=== PATIENT | female | born 1975 | race African-American/Black ===

== ENCOUNTER 2017-04-21 12:34 | Emergency (ER) | payer OTHER ==
[2017-04-21 15:36] LABS: HCG URINE NEGATIVE (NEGATIVE)
== END 2017-04-21 15:59 | disposition home or self-care (01) ==
LOC: D.ER 12:34
PROVIDERS: Nurse Practitioner Family
DX: S69.92XA Unspecified injury of left wrist, hand and finger(s), initial encounter (principal); W23.0XXA Caught, crushed, jammed, or pinched between moving objects, initial encounter; M25.40 Effusion, unspecified joint; F17.200 Nicotine dependence, unspecified, uncomplicated

== ENCOUNTER 2017-06-02 09:41 | Emergency (ER) | payer SELFPAY | END 2017-06-02 10:44 | disposition home or self-care (01) | LOC: D.ER 09:41 | DX: R51 Headache (principal); F45.0 Somatization disorder; R06.02 Shortness of breath; M54.9 Dorsalgia, unspecified ==

== ENCOUNTER 2017-06-08 19:43 | Emergency (ER) | payer SELFPAY ==
[2017-06-08 22:06] LABS: INR 0.99 (0.85-1.17); PROTIME 12.9 SECONDS (11.6-15.0)
[2017-06-08 22:07] LABS: APTT 29.4 SECONDS (22.8-39.4)
[2017-06-08 22:10] LABS: ALBUMIN 3.6 g/dL (3.4-5.0); ANION GAP 11.9 mmol/L (8-16); BILIRUBIN - TOTAL 0.26 mg/dL (0.2-1.3); CALCIUM 8.6 mg/dL (8.5-10.1); CARBON DIOXIDE 29.1 mmol/L (21.0-32.0); CREATININE - SERUM 0.9 mg/dL (0.6-1.3); PROTEIN - SERUM 7.9 g/dL (6.4-8.2)
== END 2017-06-08 23:45 | disposition other institution (70) ==
LOC: D.ER 19:43
PROVIDERS: Physician Assistant Medical
DX: I61.9 Nontraumatic intracerebral hemorrhage, unspecified (principal); F07.81 Postconcussional syndrome; R42 Dizziness and giddiness; R51 Headache; R11.0 Nausea

== ENCOUNTER 2017-07-25 15:00 | Emergency (ER) | payer MEDICAID | END 2017-07-25 18:07 | disposition home or self-care (01) | LOC: D.ER 15:00 | DX: R51 Headache (principal); Z98.890 Other specified postprocedural states ==

== ENCOUNTER 2017-12-11 16:13 | Emergency (ER) | payer MEDICAID | END 2017-12-11 18:39 | disposition home or self-care (01) | LOC: D.ER 16:13 | DX: S29.012A Strain of muscle and tendon of back wall of thorax, initial encounter (principal); V49.9XXA Car occupant (driver) (passenger) injured in unspecified traffic accident, initial encounter; Y93.89 Activity, other specified; Y92.410 Unspecified street and highway as the place of occurrence of the external cause; M62.830 Muscle spasm of back ==

== ENCOUNTER 2017-12-12 10:18 | Emergency (ER) | payer MEDICAID | END 2017-12-12 12:17 | disposition home or self-care (01) | LOC: D.ER 10:18 | DX: R51 Headache (principal) ==

== ENCOUNTER 2018-03-08 19:06 | Emergency (ER) | payer MEDICAID ==
[2018-03-08 20:07] LABS: HCG URINE POSITIVE (NEGATIVE)
[2018-03-08 20:10] LABS: APPEARANCE HAZY (CLEAR); BILIRUBIN 1+ (NEGATIVE); COLOR YELLOW (YELLOW); GLUCOSE NEGATIVE (NEGATIVE); KETONE SMALL mg/dL (NEGATIVE); NITRITE NEGATIVE (NEGATIVE); PROTEIN NEGATIVE (NEGATIVE)
[2018-03-08 20:12] LABS: BACTERIA MODERATE /hpf (NONE SEEN); RED CELLS - URINE 0-5 /hpf (0-5); WHITE CELLS - URINE 0-5 /hpf (0-5)
[2018-03-08 20:23] LABS: BASOPHILS 0.1 % (0-2); EOSINOPHILS 1.4 % (0-7); IMMATURE GRANULOCYTES 0.5 % (0-5); LYMPHOCYTES 23.9 % (15-50); MCH 30.2 pg (26.0-34.0); MCHC 33.3 g/dL (31.0-37.0); MCV 90.7 fL (80.0-100.0); MEAN PLATELET VOLUME 9.8 fL (7.4-10.4); MONOCYTES 4.7 % (2-11); NEUTROPHILS 69.4 % (40-80); PLATELET COUNT 258 10x3/uL (130-400); RDW 14.3 % (11.5-14.5); WBC 10.5 10x3/uL (4.8-10.8)
[2018-03-08 20:57] LABS: ALBUMIN 3.4 g/dL (3.4-5.0); ALKALINE PHOSPHATASE 67 U/L (46-116); ALT (SGPT) 28 U/L (10-68); CALC OSMOLALITY 271 mosm/kg (275-300); CALCIUM 9.1 mg/dL (8.5-10.1); CARBON DIOXIDE 25.6 mmol/L (21.0-32.0); CHLORIDE - SERUM 102 mmol/L (98-107); CREATININE - SERUM 0.8 mg/dL (0.6-1.3); GLUCOSE 83 mg/dL (74-106); POTASSIUM - SERUM 3.1 mmol/L (3.5-5.1); SODIUM 137 mmol/L (136-145); UREA NITROGEN 9 mg/dL (7-18); eGFR NON AFRICAN AMERICAN 84 mL/min (90-120)
[2018-03-08 21:21] LABS: AMYLASE - SERUM 33 U/L (25-115); HCG - QUANTITATIVE (MATERNAL) 14684 mIU/mL; LIPASE 93 U/L (73-393)
== END 2018-03-08 21:42 | disposition home or self-care (01) ==
LOC: D.ER 19:06
PROVIDERS: Nurse Practitioner Family
DX: O21.9 Vomiting of pregnancy, unspecified (principal); Z3A.00 Weeks of gestation of pregnancy not specified

== ENCOUNTER 2018-04-29 17:55 | Emergency (ER) | payer MEDICAID ==
[~2018-04-29] VITALS: Ht 182.9 cm; Wt 102.3 kg
[2018-04-29 18:39] VITALS: Ht 182.9 cm; Wt 102.3 kg
[2018-04-29] MEDS ORDERED: PRENATAL COMPLE1 TAB PO (18:41)
[2018-04-29] MEDS ORDERED: ZOFRAN4 MG PO (18:41)
[2018-04-29 19:59] LABS: HEMATOCRIT 37.2 % (36.0-48.0); HEMOGLOBIN 13.5 g/dL (12-16); MCH 31.5 pg (26.0-34.0); MCHC 36.3 g/dL (31.0-37.0); MCV 86.7 fL (80.0-100.0); MEAN PLATELET VOLUME 12.3 fL (7.4-10.4); RBC 4.29 10x6/uL (4.00-5.40); RDW 13.5 % (11.5-14.5)
[2018-04-29 20:09] LABS: PLATELET COUNT 169 10x3/uL (130-400)
[2018-04-29 20:11] LABS: EOSINOPHILS 0.8 % (0-7); LYMPHOCYTES 18.3 % (15-50); MONOCYTES 11.1 % (2-11); NEUTROPHILS 69.1 % (40-80)
[2018-04-29 20:13] LABS: BASOPHILS 0.01 % (0-2); IMMATURE GRANULOCYTES 0.6 % (0-5)
[2018-04-29 21:45] LABS: ALBUMIN 3.1 g/dL (3.4-5.0); ALKALINE PHOSPHATASE 70 U/L (46-116); ALT (SGPT) 94 U/L (10-68); BILIRUBIN - TOTAL 0.34 mg/dL (0.2-1.3); CALC OSMOLALITY 262 mosm/kg (275-300); CARBON DIOXIDE 25.3 mmol/L (21.0-32.0); CHLORIDE - SERUM 99 mmol/L (98-107); CREATININE - SERUM 0.6 mg/dL (0.6-1.3); GLUCOSE 95 mg/dL (74-106); POTASSIUM - SERUM 3.6 mmol/L (3.5-5.1); PROTEIN - SERUM 7.9 g/dL (6.4-8.2); SODIUM 132 mmol/L (136-145); UREA NITROGEN 8 mg/dL (7-18); eGFR NON AFRICAN AMERICAN > 90 mL/min (90-120)
[2018-04-29 22:08] LABS: HCG - QUANTITATIVE (MATERNAL) 52323 mIU/mL
[2018-04-29 23:49] LABS: APPEARANCE HAZY (CLEAR); BILIRUBIN NEGATIVE (NEGATIVE); COLOR DK YELLOW (YELLOW); GLUCOSE NEGATIVE (NEGATIVE); KETONE NEGATIVE (NEGATIVE); NITRITE NEGATIVE (NEGATIVE); PROTEIN 1+ mg/dL (NEGATIVE)
[2018-04-29 23:51] LABS: BACTERIA MODERATE /hpf (NONE SEEN); EPITHELIAL CELLS 0-5 /hpf (0-5); MUCUS >1+ /lpf (NONE SEEN); RED CELLS - URINE 0-5 /hpf (0-5); WHITE CELLS - URINE 0-5 /hpf (0-5)
[2018-04-30] MEDS ORDERED: PHENERGAN25 MG RC (00:07)
[2018-04-30 00:40] VITALS: BP 122/79
== END 2018-04-30 00:43 | disposition home or self-care (01) ==
LOC: D.ER 17:55
PROVIDERS: Family Medicine
DX: O21.9 Vomiting of pregnancy, unspecified (principal); Z3A.11 11 weeks gestation of pregnancy; R19.7 Diarrhea, unspecified

== ENCOUNTER → 2018-07-19 08:16 | Outpatient (CLI) | payer MEDICAID ==
[2018-04-29 18:39] VITALS: BMI 30.6
[~2018-07-19 08:16] MED LIST: PHENERGAN25 MG RC; PRENATAL COMPLE1 TAB PO; ZOFRAN4 MG PO
[2018-07-19 09:46] LABS: APPEARANCE HAZY (CLEAR); BILIRUBIN NEGATIVE (NEGATIVE); COLOR YELLOW (YELLOW); GLUCOSE NEGATIVE (NEGATIVE); KETONE MODERATE mg/dL (NEGATIVE); NITRITE NEGATIVE (NEGATIVE); PROTEIN 1+ mg/dL (NEGATIVE)
[2018-07-19 09:47] LABS: BACTERIA FEW /hpf (NONE SEEN); EPITHELIAL CELLS 0-5 /hpf (0-5); RED CELLS - URINE 0-5 /hpf (0-5); WHITE CELLS - URINE 0-5 /hpf (0-5)
[2018-07-19 09:50] LABS: UDS - AMPHET NEGATIVE QUAL (NEGATIVE); UDS - BARB NEGATIVE QUAL (NEGATIVE); UDS - BENZO NEGATIVE QUAL (NEGATIVE); UDS - COCAINE NEGATIVE QUAL (NEGATIVE); UDS - OPIATE NEGATIVE QUAL (NEGATIVE); UDS - PCP NEGATIVE QUAL (NEGATIVE); UDS - THC POSITIVE QUAL (NEGATIVE)
[2018-07-19 09:55] LABS: BASOPHILS 0.1 % (0-2); EOSINOPHILS 0.6 % (0-7); HEMATOCRIT 32.5 % (36.0-48.0); HEMOGLOBIN 10.9 g/dL (12-16); IMMATURE GRANULOCYTES 0.3 % (0-5); LYMPHOCYTES 15.1 % (15-50); MCH 30.5 pg (26.0-34.0); MCHC 33.5 g/dL (31.0-37.0); MEAN PLATELET VOLUME 9.6 fL (7.4-10.4); MONOCYTES 7.7 % (2-11); NEUTROPHILS 76.2 % (40-80); RBC 3.57 10x6/uL (4.00-5.40); RDW 13.5 % (11.5-14.5); WBC 9.6 10x3/uL (4.8-10.8)
[2018-07-19 09:57] LABS: PLATELET COUNT 288 10x3/uL (130-400)
[2018-07-19 10:08] LABS: ALBUMIN 2.4 g/dL (3.4-5.0); ALKALINE PHOSPHATASE 72 U/L (46-116); ALT (SGPT) 43 U/L (10-68); AMYLASE - SERUM 30 U/L (25-115); CALC OSMOLALITY 265 mosm/kg (275-300); CALCIUM 8.5 mg/dL (8.5-10.1); CARBON DIOXIDE 23.1 mmol/L (21.0-32.0); CHLORIDE - SERUM 103 mmol/L (98-107); CREATININE - SERUM 0.5 mg/dL (0.6-1.3); GLUCOSE 89 mg/dL (74-106); LIPASE 53 U/L (73-393); POTASSIUM - SERUM 3.4 mmol/L (3.5-5.1); PROTEIN - SERUM 6.7 g/dL (6.4-8.2); SODIUM 135 mmol/L (136-145); UREA NITROGEN 3 mg/dL (7-18); eGFR NON AFRICAN AMERICAN > 90 mL/min (90-120)
[2018-08-27 09:06] VITALS: BMI 35.5
== END | disposition home or self-care (01) ==
LOC: D.LDO 08:16
PROVIDERS: Obstetrics & Gynecology
DX: O26.892 Other specified pregnancy related conditions, second trimester (principal); Z3A.25 25 weeks gestation of pregnancy; R10.9 Unspecified abdominal pain

== ENCOUNTER 2018-08-26 01:17 | Outpatient (CLI) | payer MEDICAID ==
[2018-04-29 18:39] VITALS: BMI 30.6
[2018-08-26 02:16] LABS: UDS - AMPHET NEGATIVE QUAL (NEGATIVE); UDS - BARB NEGATIVE QUAL (NEGATIVE); UDS - BENZO NEGATIVE QUAL (NEGATIVE); UDS - COCAINE NEGATIVE QUAL (NEGATIVE); UDS - OPIATE NEGATIVE QUAL (NEGATIVE); UDS - PCP NEGATIVE QUAL (NEGATIVE); UDS - THC POSITIVE QUAL (NEGATIVE)
[2018-08-26 02:17] LABS: APPEARANCE CLOUDY (CLEAR); COLOR YELLOW (YELLOW)
[2018-08-26 02:18] LABS: BILIRUBIN NEGATIVE (NEGATIVE); GLUCOSE NEGATIVE (NEGATIVE); KETONE LARGE mg/dL (NEGATIVE); NITRITE NEGATIVE (NEGATIVE); PROTEIN TRACE mg/dL (NEGATIVE); UROBILINOGEN NORMAL (NORMAL)
[2018-08-26 02:22] LABS: BACTERIA MANY /hpf (NONE SEEN); EPITHELIAL CELLS 0-5 /hpf (0-5); RED CELLS - URINE 0-5 /hpf (0-5); WHITE CELLS - URINE 0-5 /hpf (0-5)
[2018-08-26 05:01] LABS: HEMATOCRIT 32.5 % (36.0-48.0); MCH 31.1 pg (26.0-34.0); MCHC 33.8 g/dL (31.0-37.0); MCV 91.8 fL (80.0-100.0); MEAN PLATELET VOLUME 10.4 fL (7.4-10.4); RBC 3.54 10x6/uL (4.00-5.40); RDW 13.1 % (11.5-14.5); WBC 9.4 10x3/uL (4.8-10.8)
[2018-08-26 05:32] LABS: CARBON DIOXIDE 23.2 mmol/L (21.0-32.0); POTASSIUM - SERUM 3.2 mmol/L (3.5-5.1)
[2018-08-27 09:06] VITALS: BMI 35.5
[2018-08-29 16:15] LABS: UDSC - AMPHET Negative ng/mL (Cutoff=1000); UDSC - BARB Negative ng/mL (Cutoff=300); UDSC - BENZO Negative ng/mL (Cutoff=300); UDSC - COC Negative ng/mL (Cutoff=300); UDSC - METH Negative ng/mL (Cutoff=300); UDSC - OPIATES Negative ng/mL (Cutoff=300); UDSC - PCP Negative ng/mL (Cutoff=25); UDSC - PROPOXY Negative ng/mL (Cutoff=300); UDSC - THC Positive (Cutoff=50)
== END 2018-08-26 06:40 | disposition home or self-care (01) ==
LOC: D.LDO 01:17
PROVIDERS: Obstetrics & Gynecology
DX: O26.899 Other specified pregnancy related conditions, unspecified trimester (principal); Z3A.00 Weeks of gestation of pregnancy not specified

== ENCOUNTER 2018-08-26 06:36 | Inpatient (IN) | payer MEDICAID ==
[~2018-08-26] VITALS: Ht 182.9 cm; Wt 118.8 kg
--- NOTE | ~2018-08-26 | DS ---
PATIENT:MARISSA ROLDAN :77 MEDICAL RECORD: [id number] DISCHARGE SUMMARY ADMISSION DATE: 08/26/18 DISCHARGE DATE: 08/27/18 DATE OF ADMISSION: 08/26/2018 DATE OF DISCHARGE: 08/27/2018 ADMISSION DIAGNOSES: 1. at 30 weeks and 5 days. 2. Persistent nausea and vomiting. 3. History of cholelithiasis. DISCHARGE DIAGNOSES: 1. at 30 weeks and 6 days. 2. Nausea and vomiting, resolved. 3. History of cholelithiasis. ATTENDING: Yanet Whyte MD PROCEDURES: None. HISTORY OF PRESENT ILLNESS: See the H&P in [facility]. SUMMARY OF HOSPITALIZATION: The patient was admitted to the hospital and received fluid hydration and support. The patient was slowly advanced to a regular diet. The patient will be discharged after a trial of low-fat regular food. The patient has received education on low fat and no fat diet plans. Followup will be in clinic at the scheduled OB appointment in the coming week. Precautions have been reviewed. TRANSINT:[id number] Voice Confirmation ID: [id number] DOCUMENT ID: [id number] YANET WHYTE MD at 1731 CC: [id number] DICTATION DATE: 08/27/18 1225 REEL WORKER: 08/28/18 0048 DIS IN 08/27/18 [id number] [place] [address]
[2018-08-26 13:30] LABS: APPEARANCE CLEAR (CLEAR); COLOR YELLOW (YELLOW); GLUCOSE NEGATIVE (NEGATIVE); KETONE SMALL mg/dL (NEGATIVE); NITRITE NEGATIVE (NEGATIVE); PROTEIN NEGATIVE (NEGATIVE); SPECIFIC GRAVITY 1.005 (1.005-1.020)
[2018-08-26 13:31] LABS: BILIRUBIN NEGATIVE (NEGATIVE); EPITHELIAL CELLS OCC /hpf (0-5); RED CELLS - URINE NONE SEEN /hpf (0-5); UROBILINOGEN NORMAL (NORMAL); WHITE CELLS - URINE NSEEN /hpf (0-5)
[2018-08-26 17:55] VITALS: BP 135/65; BMI 35.6
[2018-08-26 18:18] LABS: APPEARANCE CLEAR (CLEAR); BILIRUBIN NEGATIVE (NEGATIVE); COLOR YELLOW (YELLOW); GLUCOSE NEGATIVE (NEGATIVE); KETONE NEGATIVE (NEGATIVE); NITRITE NEGATIVE (NEGATIVE); PROTEIN NEGATIVE (NEGATIVE); UROBILINOGEN NORMAL (NORMAL)
[2018-08-27 09:06] VITALS: Ht 182.9 cm; Wt 118.8 kg
== END 2018-08-27 14:30 | disposition home or self-care (01) | DRG 833 ==
LOC: D.ER 06:36 → D.LD 08:24
PROVIDERS: Obstetrics & Gynecology
DX: O21.8 Other vomiting complicating pregnancy (principal); Z3A.30 30 weeks gestation of pregnancy

== ENCOUNTER → 2018-09-08 08:09 | Outpatient (CLI) | payer MEDICAID ==
[2018-08-27 09:06] VITALS: BMI 35.5
[2018-09-08 10:32] LABS: UDS - AMPHET NEGATIVE QUAL (NEGATIVE); UDS - BARB NEGATIVE QUAL (NEGATIVE); UDS - BENZO NEGATIVE QUAL (NEGATIVE); UDS - COCAINE NEGATIVE QUAL (NEGATIVE); UDS - OPIATE NEGATIVE QUAL (NEGATIVE); UDS - PCP NEGATIVE QUAL (NEGATIVE); UDS - THC POSITIVE QUAL (NEGATIVE)
[2018-09-08 11:12] LABS: APPEARANCE CLEAR (CLEAR); BILIRUBIN NEGATIVE (NEGATIVE); COLOR DK YELLOW (YELLOW); GLUCOSE NEGATIVE (NEGATIVE); KETONE LARGE mg/dL (NEGATIVE); NITRITE NEGATIVE (NEGATIVE); PROTEIN TRACE mg/dL (NEGATIVE); SPECIFIC GRAVITY 1.015 (1.005-1.020)
[2018-09-08 11:13] LABS: BACTERIA FEW /hpf (NONE SEEN); EPITHELIAL CELLS 0-5 /hpf (0-5); HYALINE CAST OCC /lpf (NONE SEEN); MUCUS <1+ /lpf (NONE SEEN)
[2018-09-13 10:08] LABS: UDSC - AMPHET Negative ng/mL (Cutoff=1000); UDSC - BARB Negative ng/mL (Cutoff=300); UDSC - BENZO Negative ng/mL (Cutoff=300); UDSC - COC Negative ng/mL (Cutoff=300); UDSC - METH Negative ng/mL (Cutoff=300); UDSC - OPIATES Negative ng/mL (Cutoff=300); UDSC - PCP Negative ng/mL (Cutoff=25); UDSC - PROPOXY Negative ng/mL (Cutoff=300); UDSC - THC Positive (Cutoff=50)
== END | disposition home or self-care (01) ==
LOC: D.LDO 08:09
PROVIDERS: Obstetrics & Gynecology
DX: O26.899 Other specified pregnancy related conditions, unspecified trimester (principal); Z3A.00 Weeks of gestation of pregnancy not specified; K59.00 Constipation, unspecified

== ENCOUNTER → 2018-10-10 12:11 | Outpatient (CLI) | payer MEDICAID ==
[2018-08-27 09:06] VITALS: BMI 35.5
== END | disposition home or self-care (01) ==
LOC: D.LDO 12:11
DX: O26.893 Other specified pregnancy related conditions, third trimester (principal); Z3A.37 37 weeks gestation of pregnancy

== ENCOUNTER 2018-10-24 07:55 | Inpatient (IN) | payer MEDICAID ==
[~2018-10-24] VITALS: Ht 170.2 cm; Wt 117.0 kg
[2018-10-24] VITALS (15 sets, daily range): BP systolic 115–169; BP diastolic 57–85; Ht 170.2 cm; Wt 117.0 kg
[2018-10-24 09:17] LABS: HEMATOCRIT 32.1 % (36.0-48.0); HEMOGLOBIN 10.8 g/dL (12-16); MCH 30.3 pg (26.0-34.0); MCHC 33.6 g/dL (31.0-37.0); MCV 89.9 fL (80.0-100.0); MEAN PLATELET VOLUME 9.7 fL (7.4-10.4); RBC 3.57 10x6/uL (4.00-5.40); RDW 13.5 % (11.5-14.5); WBC 6.7 10x3/uL (4.8-10.8)
[2018-10-24 11:01] LABS: UDS - AMPHET NEGATIVE QUAL (NEGATIVE); UDS - BARB NEGATIVE QUAL (NEGATIVE); UDS - BENZO NEGATIVE QUAL (NEGATIVE); UDS - COCAINE NEGATIVE QUAL (NEGATIVE); UDS - OPIATE NEGATIVE QUAL (NEGATIVE); UDS - PCP NEGATIVE QUAL (NEGATIVE); UDS - THC POSITIVE QUAL (NEGATIVE)
[2018-10-24 12:08] LABS: APPEARANCE HAZY (CLEAR); COLOR YELLOW (YELLOW); NITRITE NEGATIVE (NEGATIVE); PROTEIN NEGATIVE (NEGATIVE); SPECIFIC GRAVITY 1.005 (1.005-1.020)
[2018-10-24 12:09] LABS: BILIRUBIN NEGATIVE (NEGATIVE); GLUCOSE NEGATIVE (NEGATIVE); KETONE NEGATIVE (NEGATIVE)
[2018-10-24 12:10] LABS: BACTERIA MODERATE /hpf (NONE SEEN); MUCUS <1+ /lpf (NONE SEEN); RED CELLS - URINE 0-5 /hpf (0-5); WHITE CELLS - URINE 0-5 /hpf (0-5)
[2018-10-24 12:11] LABS: YEAST <1+ /hpf (NONE SEEN)
--- NOTE | 2018-10-24 12:23 | NUR ---
DEMEROL IV GIVEN PER RR NURSE FOR SHIVERING. BP ELEVATED WITH FISRT CHECK. PT SHIVERING AND DIFFICULT TO REPEAT.
--- NOTE | 2018-10-24 12:23 | NUR ---
PT ARRIVES TO ROOM 1273 VIA BED FROM RR. DROWSY BUT AWAKENS AND ANSWERS QUESTIONS. PT SHIVERING- CO HANDS BEING COLD. IV OF 1000CC LR WITH PITOCIN 20 UNITS INFUSING AT 125CC/HR- PLACED ON PUMP. ABD DRESSING INTACT-CLEAN AND DRRY. NO LOCHIA NOTED-DIARRHEA BM NOTED ON PADS. SCD'S ON.
--- NOTE | 2018-10-24 12:30 | NUR ---
FUNDUS 1U/FIRM. FUNDUS CHECKED PER Josselin OCASIO RN - NO LOCHIA NOTED WITH MASSAGE. PADS PLACED POST LINEN CHANGED AND PERINEUM CLEANSED.
--- NOTE | 2018-10-24 12:48 | NUR ---
FAMILY AT BEDSIDE. NURSERY IN ROOM.
--- NOTE | 2018-10-24 13:00 | NUR ---
phoned dr garcía cell phone for post op orders. phoned office and sopke with office personnell- states they will ask dr garcía about orders.
--- NOTE | 2018-10-24 13:25 | NUR ---
dr garcía calls unit- new order received.
--- NOTE | 2018-10-24 13:34 | NUR ---
PT RATING PAIN A 10 ON A SCALE OF 0-10. CO PAIN AT INCISION- STOMACH- STATES FEELS LIKE CRAMPING.
--- NOTE | 2018-10-24 13:39 | NUR ---
DILAUDID 1MG BEING GIVEN SLOWLY.
--- NOTE | 2018-10-24 13:40 | NUR ---
PT FAMILY LEAVING ROOM- PT INSISTS THAT 6YO SON STAYS WITH HER.
--- NOTE | 2018-10-24 13:42 | NUR ---
1MG IV DILAUDID IN - PT CO NAUSEA- POSITIONED TO RT TILT AND STATES NAUSEA IS BETTER. EXPLAINED THAT WILL WAIT 5 MIN AND SEE IF SHE WANTS ANOTHER 1MG DR WHYTE INSTRUCTED ON PHONE. NO LOCHIA NOTED ON PAD. ABD SOFT.
--- NOTE | 2018-10-24 13:51 | NUR ---
PT ASLEEP. NOT GIVEN 2ND MG OF DILAUDID AT THIS TIME.
--- NOTE | 2018-10-24 14:48 | NUR ---
PT TALKING ON PHONE. REQUESTING MORE WATER. WHEN ASK -PT STATES THAT PAIN IS A 10 ON SCALE OF 0-10. PT STATES THAT SHE STARTS TO COUGH AND PAIN GETS WORSE AGAIN.
--- NOTE | 2018-10-24 15:07 | NUR ---
CO OF INTERMITTENT NAUSEA. ZOFRAN ORDER OBTAINED.
--- NOTE | 2018-10-24 15:07 | NUR ---
PULLS SELF UP IN BED. PADS WITHOUT LOCHIA. ABD SOFT.
--- NOTE | 2018-10-24 15:47 | NUR ---
PHONED DR WHYTE AND INFORMED OF PT CO OF PAIN AND RATING A 10. DR WHYTE STATES THAT HE IS GOING TO CHANGE PAIN MED ORDERS TO DILAUDID 4MG IV FOR SEVERE PAIN AND DILAUDID 2MG FOR MILD PAIN. INFORMED PT OF THIS.
--- NOTE | 2018-10-24 16:03 | NUR ---
PT TURNS TO LT SIDE AND PROPPED WITH PILLOWS. NO LOCHIA NOTED. ABD SOFT.
--- NOTE | 2018-10-24 16:07 | NUR ---
WHILE GIVING DILAUDID PT FALLS TO SLEEP. WHEN AWAKENED TO ASK IF PAIN IS BETTER STATES THAT ITS A 10 BUT WHEN QUESTIONED FURTHER STATES THAT IT IS EASING UP AND IS DOWN TO A 5 ON SCALE OF 0-10. FALLS BACK TO SLEEP.
--- NOTE | 2018-10-24 16:34 | NUR ---
AWAKEN PT FOR VS. PT STATES THAT PAIN IS ABOUT A 5 ON SCALE OF 0-10. DOZES BACK TO SLEEP AFTER ANSWERS QUESTION. O2 SAT NOTED TO DROP SOME WHEN SNORING-SLEEPING TO 94 AT TIMES.
--- NOTE | 2018-10-24 16:45 | NUR ---
DR WHYTE IN UNIT- REPORT GIVEN- NO NEW ORDERS.
--- NOTE | 2018-10-24 18:00 | NUR ---
PT AWAKE. REQUEST WATER CUP BE REFILLED. O2 SAT AT 98- PULSE OX REMOVED. RATING PAIN A 5 ON SCALE OF 0-10.
--- NOTE | 2018-10-24 19:10 | NUR ---
REPORT TO PM SHIFT.
--- NOTE | 2018-10-24 19:48 | NUR ---
PT. FEEDING AT PRESENT. MALE AND CHILD SLEEPING ON SOFA. VISITOR AND CHILD IN ROOM. PT. AWAKE AND ORIENTED. IV OF NS WITH 20 PITOCIN ADDED INFUSING VIA PUMP AT 125CC/HR IN IV SITED IN RT. SIDE OF NECK. SCDS ON AND FUNCTIONAL. ANAYA PATENT AND DRAINING. INFORMED PT. WOULD RETURN FOR HER FULL ASSESSMENT AFTER SHE COMPLETES FEEDING HER .
--- NOTE | 2018-10-24 20:46 | NUR ---
PT. AWAKE AND ORIENTED. RELATES THAT SHE HAS HAD A COLD FOR A WEEK. COUGHING AT TIMES AND ALSO BLOWING LARGE AMT. OF MUCUS FROM NOSE. INQUIRED IF OTHERS AT HOME HAVE SAME. STATES HER SON DID FOR A SHORT PERIOD OF TIME. BREATH SOUNDS CLEAR. BOWEL SOUNDS AUDIBLE. LOWER ABD. INCISION DRESSING DRY AND INTACT. IV SITED IN RT SIDE OF NECK. IV INFUSING PER PUMP AT 125CC/HR. SCDS ON AND PUMP FUNCTIONAL ALTHOUGH SLEEVE ON LT LOWER LEG NOT INFLATING. DISCONNECTED AND RECONNECTED PUMP TO LT SLEEVE AND FUNCTIONAL AT THIS TIME. ANAYA PATENT AND DRAINING. PT. INSTRUCTED ON USE OF INCENTIVE SPIROMETER. PT. DEMONSTRATED USE X2 WITH POOR EFFORT. INSTRUCTED PT. THAT SHE NEEDED TO USE HOURLY WHILE AWAKE. PT. STATES UNDERSTANDING. ICE CAP NOTED TO ABD. INCISION. LOCHIA RUBRA MOD. ON CURRENT PAD. PT. VISITING WITH FAMILY AND WATCHING TV. LAUGHING AT TIMES. RATES PAIN A 10 OF 10 ON PAIN SCALE. NO FACIAL GRIMMACE NOTED. DISCUSSED POC WITH PT.
--- NOTE | 2018-10-24 21:13 | NUR ---
PT. TALKING AND LAUGHING WITH VISITORS IN ROOM. NO FACIAL GRIMMACE NOTED. DILAUDID 2MG GIVEN SLOW IVP OVER 2 MINUTES.
--- NOTE | 2018-10-24 21:15 | NUR ---
PT. DOSING OFF AT INTERVALS. ASKING FOR WATER. SAME PROVIDED. FAMILY AND VISITORS IN ROOM. PT. CLOSING EYES FREQUENTLY AND COMMUNICATING LESS WITH FAMILY.
--- NOTE | 2018-10-24 22:05 | NUR ---
PT. LYING ON BACK WITH EYES CLOSED AND RESPIRATIONS UNLABORED. DOES NOT AWAKENED TO IVAC PUMP ALARMING. IV TUBING BENT OCCLUDING FLOW. MOVED PT. ARM TO FREE IV LINE. PT. AWAKE ONLY BRIEFLY AND BACK TO SLEEP. VISITORS AND SMALL CHILD IN ROOM TALKING LOUDLY.
--- NOTE | 2018-10-24 23:14 | NUR ---
INTO PT. ROOM. AWAKE ONLY BRIEFLY.
--- NOTE | 2018-10-24 23:16 | NUR ---
DISCUSSED POC WITH PT. AND THAT THIS NURSE IS GOING TO TAKE HER CATHETER OUT AND SALINE LOCK IV. INFORMED LILIAM THAT HAS SOFA PULLED OUT IN FROM OF BATHROOM DOOR THAT HE WILL NEED TO PUT SOFA BACK AGAINST WALL. LILIAM DISSATISIFIED WITH DIRECTIONS AND STATES THAT HE "CAN NOT WATCH CARTOON FROM THERE. " ATTEMPTED TO EXPLAIN THAT PT. WOULD NEED TO GET UP TO THE BATHROOM AND THE SOFA BLOCKS THE DOOR. LILIAM CURSING AND SAYING IT WAS RIDICULOUS THAT HE COULDN'T EVEN SEE TV FROM AGAINST THE WALL. SMALL CHILD ALSO REMAINS IN THE ROOM. LILIAM STATES THAT "SHE CAN JUST WALK AROUND THE END OF THE SOFA TO BATHROOM". INFORMED LILIAM THAT IF PT. WERE TO FALL GOING AROUND THE END OF THE SOFA, THERE WOULD NOT BE ENOUGH ROOM FOR THIS NURSE TO EVEN HELP HER. LILIAM STATES "WHY WOULD THOSE DAYSHIFT NURSES TELL ME IT WAS FINE THERE?" INFORMED LILIAM THAT THIS NURSE DID NOT KNOW BUT IF THEY RETURN IN THE AM THAT THIS NURSE WOULD BE THE FIRST TO ASK THEM THE QUESTION. LILIAM SHOVING SOFA AGAINST THE WALL AND CONTINUES TO TALK LOUDLY ABOUT HOW UNREASONABLE IT WAS. PT. SLEEPING AT PRESENT.
--- NOTE | 2018-10-24 23:20 | NUR ---
ANAYA CATH. DISCONTINUED WITH 700CC IN DRAINAGE BAG. HARPREET PAD CHANGED ALTHOUGH CURRENT PAD DID NOT HAVE ANY LOCHIA ON IT.
--- NOTE | 2018-10-24 23:28 | NUR ---
PT. POSITIONED FROM BACK TO RT. SIDE. SUPPORTED WITH PILLOWS. SCDS ON AND FUNCTIONAL.
--- NOTE | 2018-10-24 23:31 | NUR ---
TORADOL GIVEN SLOW IV PUSH OVER 2-3 MINUTES.
--- NOTE | 2018-10-24 23:40 | NUR ---
IV SALINE LOCKED. ICE CAP REFILLED AND PLACED OVER ABD. DRESSING. ICE WATER PROVIDED. PT. SLEEPING AT PRESENT.
--- NOTE | 2018-10-24 23:45 | NUR ---
INFANT RETURNED TO NBN PER APPROVAL OF FOB AND PATIENT. THEY AGREE THAT THEY WILL LET THIS NURSE KNOW WHEN THEY DESIRE THE BACK TO ROOM.
--- NOTE | 2018-10-25 01:05 | NUR ---
INTO PT. ROOM AFTER HEARING COUGHING. PT. STATES "I WAS TO THE WORLD , ASLEEP AND WOKE UP COUGHING BUT ALSO PASSED GAS". PT HAS ICE WATER AT BEDSIDE. SIDE RAILS UP X 2. CALL LIGHT WITHIN REACH.
--- NOTE | 2018-10-25 03:30 | NUR ---
LYING ON RT SIDE WITH EYES CLOSED. RESPIRATIONS UNLABORED. FOB AND CHILD ON SOFA SLEEPING.
--- NOTE | 2018-10-25 03:40 | NUR ---
PT. REPORTS URGE TO VOID. SCDS DISCONNECTED FROM PUMP. PT. NEEDED MINIMAL ASSISTANCE. AMBULATED TO BATHROOM WITH STEADY GAIT. VOIDED 250CC ON [place] HAT. GOWN WET FROM PT. SWEATING. GOWN CHANGED. HARPREET PAD WITHOUT LOCHIA BUT CHANGED AND HARPREET PANTIES APPLIED. AMBULATORY BACK TO BED. PT. REQUESTING PAIN MEDICATION, BLANKET AND ICE WATER.
[2018-10-25 03:56] VITALS: BP 133/68
--- NOTE | 2018-10-25 03:59 | NUR ---
PERCOCET GIVEN ORDERED FOR PAIN SROCE OF 10 OF 10 FOR INCISIONAL DISCOMFORT. EXTRA BLANKET GIVEN TO PT. AND ICE WATER PROVIDED. LYING IN RT TILT IN BED. BLOWING NOSE FREQUENTLY. SCDS ON AND PUMP RESTARTED. ABD. DRESSING DRY AND INTACT. NO LOCHIA NOTED.
--- NOTE | 2018-10-25 04:47 | NUR ---
FOB UP TENDING TO INFANT. PT. LYING WITH EYES CLOSED AND RESPIRATIONS UNLABORED. PT. AWAKENS BRIEFLY TO FOB TALKING WITH THIS NURSE.
--- NOTE | 2018-10-25 06:20 | NUR ---
INTO ROOM TO CHECK ON PT. PT. AWAKE AT PRESENT. FOB CHANGING AND ASK FOR INSTRUCTIONS ON SWADDLING . DEMONSTRATED SWADDLING TO FOB. FOB VERY ATTENTIVE TO 'S NEEDS. PT. REPORTS THAT PERCOCET "DIDN'T HELP ME AT ALL." REMINDED PT. THAT SHE HAD BEEN SLEEPING OFTEN. REPORTS THAT SHE KNEW SHE SLEPT BUT THOUGHT SHE COULD BE MORE COMFORTABLE IF SHE CHANGED POSITIONS OR WALKED. ENCOURAGED PT. NOT TO LET BLADDER GET FULL BEFORE GETTING UP DUE TO PUTTING PRESSURE ON BLADDER. PT. REPORTS THAT HER BLADDER IS NOT FULL.
--- NOTE | 2018-10-25 06:30 | NUR ---
PT. CALLED REQUESTING TO GO TO BATHROOM. THIS NURSE TO ROOM TO ASSIST. SCDS OFF PUMP. PT. AMBULATED TO BATHROOM WITH MINIMAL ASSISTANCE. VOIDED 300CC ON [place] HAT. HARPREET PAD WITH NO LOCHIA NOTED. HARPREET PAD CHANGED AND PT. DESIRED TO WALK IN ROOM. INFANT IN OPEN CRIB AT BEDSIDE. FOB IN ROOM WITH PT.
[2018-10-25 06:45] LABS: BASOPHILS 0.1 % (0-2); EOSINOPHILS 0.3 % (0-7); HEMOGLOBIN 9.5 g/dL (12-16); IMMATURE GRANULOCYTES 0.4 % (0-5); MCH 30.5 pg (26.0-34.0); MCHC 33.9 g/dL (31.0-37.0); MEAN PLATELET VOLUME 9.7 fL (7.4-10.4); MONOCYTES 6.3 % (2-11); NEUTROPHILS 85.9 % (40-80); RBC 3.11 10x6/uL (4.00-5.40); RDW 13.5 % (11.5-14.5)
[2018-10-25 06:50] LABS: PLATELET COUNT 221 10x3/uL (130-400); WBC 11.3 10x3/uL (4.8-10.8)
[2018-10-25 07:21] LABS: RAPID PLASMA REAGIN Non Reactive (Non Reactive)
[2018-10-25 07:28] VITALS: BP 131/71
--- NOTE | 2018-10-25 07:28 | NUR ---
SHIFT ASSESSMENT COMPLETED AT THIS TIME. PT SITTING UP ON SIDE OF BED STATING "I JUST FEEL A LITTLE DIZZY. I THINK I NEED TO EAT SOMETHING." PT REPORTS VOIDING WITHOUT DIFFICULTY. HR-RRR, PPP, BOWEL SOUNDS ACTIVE X4. BLI C/D/I WITHOUT ERYTHEMA OR EDEMA NOTED TO SITE. CVL IN PLACE IN RT JUGULAR SL WITH DRESSING C/D/I AND BIOPATCH IN PLACE. PT RATES CURRENT ABD PAIN 6/10 AND TOLERABLE AT THIS TIME, BUT STATES "WHEN IT'S TIME FOR ME TO HAVE MY MEDICINE I'D LIKE IT PLEASE." ICE WATER PROVIDED PER PT REQUEST. PT DENIES FURTHER NEEDS. BED LOW, WHEELS LOCKED, CALL LIGHT AND PHONE WITHIN REACH, SIDE RAILS UP X2.
--- NOTE | 2018-10-25 08:35 | NUR ---
PT RATES PAIN 10/10 DESCRIBED SHARP AND CRAMPING ABD PAINS. PERCOCET 10/325MG X1 TAB GIVEN AT THIS TIME. PT USING I.S. WITH 1500ML PULLED. GIFT BOX AND FREE MEAL TICKET PROVIDED TO FOB. PT ASKS ABOUT MEDICATION FOR "COLD." ADV WILL INQUIRE WITH . PT DENIES FURTHER NEEDS AT THIS TIME.
--- NOTE | 2018-10-25 09:30 | NUR ---
PT REPORTS PAIN 5/10 AND MORE TOLERABLE. NO NEEDS VOICED AT THIS TIME.
--- NOTE | 2018-10-25 11:02 | NUR ---
PT AMB IN ROOM REPORTS VOIDED IN [place] HAT IN ROOM. 300ML CLEAR YELLOW URINE NOTED. ADV PT SHE NO LONGER NEEDS TO CATCH URINE. PT VERBALIZED UNDERSTANDING. DENIES FURTHER NEEDS AT THIS TIME.
--- NOTE | 2018-10-25 12:25 | NUR ---
PT C/O PAIN 07/30. PERCOCET 10/325MG X1 TAB AND 30MG/ML TORADOL SIVP GIVEN PER ORDERS. SEE EMAR FOR ADMINISTRATION. PT SITTING UP ON SIDE OF BED WITH S.O. AND 6 YEAR OLD SON IN ROOM. DENIES FURTHER NEEDS AT THIS TIME. WILL CONTINUE TO MONITOR PRN
--- NOTE | 2018-10-25 13:38 | NUR ---
ROUNDS MADE. PT RESTING ON BACK WITH HOB 45 DEGREES. EYES CLOSED, RESP EVEN & UNLABORED. PT LEFT UNDISTURBED.
--- NOTE | 2018-10-25 14:53 | NUR ---
RN TO BEDSIDE. PT RESTING ON BACK WITH EYES CLOSED, RESP EVEN & UNLABORED. PT LEFT UNDISTURBED AT THIS TIME.
--- NOTE | 2018-10-25 16:07 | NUR ---
ZITHROMAX GIVEN PER ORDERS. SEE EMAR FOR ADMINISTRATION.
--- NOTE | 2018-10-25 16:25 | NUR ---
PT AMB IN HALLWAY. STEADY GAIT NOTED. PT IS CONVERSING WITH S.O. AND IS CHEERFUL.
--- NOTE | 2018-10-25 18:38 | NUR ---
PERCOCET 10/325MG X1 TAB, TORADOL 10MG X1 TAB AND ROBITUSSIN 10ML GIVEN PER ORDERS AT THIS TIME. PT RATES PAIN 10/10 IN ABD DESCRIBED CRAMPING. PT SITTING UP IN BED LAUGHING WITH GUESTS IN ROOM AT THIS TIME. DENIES FURTHER NEEDS. WILL CONTINUE TO MONITOR.
--- NOTE | 2018-10-25 19:15 | NUR ---
PT AMBULATING IN [place] IN NO ACUTE DISTRESS. PT AMBULATING WITHOUT DIFFICULTY.
[2018-10-25 19:29] VITALS: BP 156/73
--- NOTE | 2018-10-25 19:29 | NUR ---
RN TO PT BS FOR SCOTTY. PT SITTING ON SIDE OF BED IN NO ACUTE DISTRESS. PT RETURNS TO SEMI-FOWLERS POSITION TO ALLOW RN TO PERFORM SCOTTY. PT IS A 43YO G10 NOW WITH REPEAT C/S YESTERDAY @ 1058. @ 39.2WKS GESTATION. PT NOW WITH C/S TIMES 4. AAOX3. HR REGULAR. LUNGS CTAB. PT C/O CONGESTION AND COUGH. STATES AT THIS TIME IT IS NON PRODUCTIVE. ABDOMEN SOFT AND TENDER WITH PALPATION. BS HYPOACTIVE TIMES 4. FUNDUS NOT PALPATED. LOWER ABDOMINAL DRESSING IN PLACE. DRESSING C/D/I. PT ASKED IF SHE HAD SHOWERED TODAY. PT DENIES AND DENIES WANTING TO SHOWER AT THIS TIME. HARPREET PAD AND PANTIES IN PLACE. LOCHIA RUBRA SCANT. PT DENIES DIFFICULTY VOIDING. STATES SHE HAS PASSED GAS SINCE C/S BUT HAS NOT HAD A BM SINCE C/S. PT TOLERATING REGULAR DIET BUT C/O NAUSEA AT THIS TIME. 1+ EDEMA NOTED TO UPPER EXTREMITIES BILATERALLY. 2+ PITTING EDEMA NOTED TO LOWER EXTREMITIES BILATERALLY. JUGULAR MIDLINE NOTED. FLUSHED AT THIS TIME WITH 10CC NS WITHOUT DIFFICULTY. PT STATES PAIN HAS IMPROVED TO 7/10. PT DENIES ANY NEEDS AT THIS TIME. BED IN LOW POSITION, SIDE RAILS UP TIMES 2, CALL LIGHT AND PHONE IN REACH. WILL RECHECK B/P READING IN 15 MIN. SO REMAINS AT PT BS FOR SUPPORT AND ASSISTANCE. INFANT REMAINS AT PT BS FOR COUPLET CARE. WILL CONT TO MONITOR PT STATUS.
[2018-10-25 19:48] VITALS: BP 128/60
--- NOTE | 2018-10-25 19:48 | NUR ---
RN TO PT BS. B/P RECHECK WNL. PT RESTING IN BED WITH EYES CLOSED IN NO ACUTE DISTRESS. PT DENIES ANY FURTHER NEEDS AT THIS TIME. BED IN LOW POSITION, SIDE RAILS UP TIMES 2, CALL LIGHT AND PHONE IN REACH. SO REMAINS AT PT BS FOR SUPPORT AND ASSISTANCE. INFANT REMAINS AT PT BS FOR COUPLET CARE. WILL CONT TO MONITOR PT STATUS.
--- NOTE | 2018-10-25 20:59 | NUR ---
RN TO PT BS FOR ROUNDS. PT RESTING IN BED IN SEMI-FOWLERS POSITION, WITH EYES CLOSED, IN NO ACUTE DISTRESS. RESPIRATIONS EVEN AND UNLABORED. BED IN LOW POSITION, SIDE RAILS UP TIMES 2, CALL LIGHT AND PHONE IN REACH. SO REMAINS AT PT BS FOR SUPPORT AND ASSISTANCE, REMAINS AT PT BS FOR COUPLET CARE. WILL CONT TO MONITOR PT STATUS.
--- NOTE | 2018-10-25 21:33 | NUR ---
CALLED REQUESTING BOTTLE. HOLDING AT PRESENT. BOTTLE PROVIDED. PT. REPORTS THAT SHE TOOK HER COUGH MEDICATION EARLY AND WAS HOPEFULL SHE WOULD COUGH LESS. FOB UP TO CHANGE INFANT DIAPER.
--- NOTE | 2018-10-25 23:09 | NUR ---
RN TO PT BS FOR ROUNDS. PT RESTING IN BED IN SEMI-FOWLERS POSITION, WITH EYES CLOSED, IN NO ACUTE DISTRESS. RESPIRATIONS EVEN AND UNLABORED. BED IN LOW POSITION, SIDE RAILS UP TIMES 2, CALL LIGHT AND PHONE IN REACH. SO AT PT BS FOR SUPPORT AND ASSISTANCE. REMAINS AT PT BS FOR COUPLET CARE. WILL CONT TO MONITOR PT STATUS.
[2018-10-26] VITALS: BP 139/88
--- NOTE | 2018-10-26 00:01 | NUR ---
RN CALLED TO PT BS WITH C/O PAIN, RATES 07/30. REQUESTS MEDICATION. 1 TAB PERCOCET 10 AND 1 TAB TORDAL 10MG PO PROVIDED TO PT AT THIS TIME. PT WITH COUGH WHEN SHE WAKES UP AND STARTS MOVING. PT HAS NOT BEEN COUGHING FOR THE PAST FEW HOURS. PT INFORMED THAT SHE HAS NOT BEEN COUGHING FOR THE PAST FEW HOURS AND HAS BEEN SLEEPING. INFORMED PT RN WOULD NOT BE GIVING HER THE PERCOCET, TORDAL, AND HER COUGH SYRUP WITH CHAYA. PT VERBALIZED UNDERSTANDING. PT DENIES ANY FURTHER NEEDS AT THIS TIME. BED IN LOW POSITION, SIDE RAILS UP TIMES 2, CALL LIGHT AND PHONE IN REACH. SO REMAINS AT PT BS FOR SUPPORT AND ASSISTANCE. WILL CONT TO MONITOR PT STATUS.
--- NOTE | 2018-10-26 00:56 | NUR ---
RN CALLED TO PT BS. PT SITTING ON BEDSIDE, IN NO ACUTE DISTRESS. PT REQUESTS INFANT BE TRANSPORTED TO NURSERY FOR NIGHT. INFANT TRANSPORTED TO NURSERY VIA OPEN CRIB. REPORT GIVEN TO NURSERY RN. PT DENIES ANY FURTHER NEEDS AT THIS TIME. BED IN LOW POSITION, SIDE RAILS UP TIMES 2, CALL LIGHT AND PHONE IN REACH. SO REMAINS AT PT BS FOR SUPPORT AND ASSISTANCE. WILL CONT TO MONITOR PT STATUS.
--- NOTE | 2018-10-26 02:11 | NUR ---
RN TO PT BS FOR ROUNDS. PT RESTING IN BED IN SEMI-FOWLERS POSITION, WITH EYES CLOSED, IN NO ACUTE DISTRESS. RESPIRATIONS EVEN AND UNLABORED. BED IN LOW POSITION, SIDE RAILS UP TIMES 2, CALL LIGHT AND PHONE IN REACH. SO REMAINS AT PT BS FOR SUPPORT AND ASSISTANCE. WILL CONT TO MONITOR PT STATUS.
--- NOTE | 2018-10-26 04:00 | NUR ---
RN TO PT ROOM FOR ROUNDS. PT RESTING IN BED IN SEMI-FOWLERS POSITION, WITH EYES CLOSED, IN NO ACUTE DISTRESS. RESPIRATIONS EVEN AND UNLABORED. BED IN LOW POSITION, SIDE RAILS UP TIMES 2, CALL LIGHT AND PHONE IN REACH. SO AT PT BS FOR SUPPORT AND ASSISTANCE. WILL CONT TO MONITOR PT STATUS.
--- NOTE | 2018-10-26 06:15 | NUR ---
RN TO PT BS. PT RESTING IN BED IN SEMI-FOWLERS POSITION IN NO ACUTE DISTRESS. PT RATES 10/10, TORDAL 10MG PO PROVIDED TO PT AT THIS TIME AND PERCOCET 10 1 TAB PROVIDED TO PT AT THIS TIME. FRESH WATER PROVIDED TO PT. PT DENIES ANY FURTHER NEEDS AT THIS TIME. BED IN LOW POSITION, SIDE RAILS UP TIMES 2, CALL LIGHT AND PHONE IN REACH. SO REMAINS AT PT BS FOR SUPPORT AND ASSISTANCE. WILL CONT TO MONITOR PT STATUS AND GIVE REPORT TO AM SHIFT.
--- NOTE | 2018-10-26 07:06 | NUR ---
ASSUMED CARE OF THIS PT. CURRENTLY SITTING UP ON EDGE OF BED HOLDING . VISITOR SITTING ON BEDSIDE WITH PT. NO REQUESTS AT PRESENT. WILL COMPLETE SHIFT ASSESSMENT FEEDING AND BREAKFAST. ANTICIPATE DC HOME TODAY. WILL CENTRAL LINE REMOVED PRIOR TO SHOWER AFTER OBTAINING MD ORDER. GBS NEG, O+, RUBELLA NON-IMMUNE. WILL OFFER MMR, CHECK TDAP STATUS AND FLU STATUS. ANTICIPATE DC HOME TODAY WITH INFANT.
--- NOTE | 2018-10-26 08:22 | NUR ---
SITTING UP ON COUCH LOOKING THROUGH BAGS. DISCUSSED IMMUNIZATIONS. PT DECLINES FLU VACCINATION. CONSIDERING MMR. DOES NOT BELIEVE SHE RECEIVED TDAP DURING . WILL CHECK AR IMMUNIZATIONS. NON-SMOKER.
[2018-10-26 09:04] VITALS: BP 148/88; BP 153/83
--- NOTE | 2018-10-26 09:11 | NUR ---
DR WHYTE NOTIFIED OF ELEVATED BP'S. PT WITHOUT COMPLAINTS, NO PAIN, PASSING GAS, AMBULATING. ALSO ASKED MD IF ANESTHESIA CAN DC CENTRAL LINE. ORDERS RECEIVED.
--- NOTE | 2018-10-26 09:30 | NUR ---
LIONEL CHAN, PAPER PRODUCTS SUPERVISOR REMOVED CENTRAL LINE. SAYS THAT SMALL HEMOTOMA FORMED AND HE PLACED PRESSURE DRESSING. HE TOLD PT SHE COULD TAKE DRESSING OFF TONIGHT WHILE IN SHOWER.
--- NOTE | 2018-10-26 10:08 | NUR ---
UP TO SHOWER. DENIES PAIN OR PROBLEMS AT THIS TIME. HAS ITEMS NEEDED. FOB OUT OF ROOM, INFANT TO NURSERY.
[2018-10-26 10:36] VITALS: BP 130/83
--- NOTE | 2018-10-26 10:40 | NUR ---
DR WHYTE VISITING PATIENT. BP REEVALUATED AND MD AWARE OF RESULTS. NEW PRESCRIPTIONS WRITTEN BY AND GIVEN TO THE RN FOR PT UPON DC.
--- NOTE | 2018-10-26 10:44 | NUR ---
REQUESTED COUGH SYRUP FOR COUGH. SEE E-MAR. DISCUSSED TDAP, MMR AND FLU VACCINATIONS. CURRENTLY MMR NON-IMMUNE AND NEEDS TDAP VACCINATION PER AR IMMUNIZATIONS RECORD. SECONDARY TO BEING TREATED FOR URI WITH ZITHROMAX, WOULD LIKE TO WAIT TO GET IMMUNIZATIONS. PLANS TO RECEIVE THROUGH HER DOCTOR OR THE HEALTH DEPARTMENT. UNDERSTANDS IMPORTANCE OF VACCIINATIONS. IN ROOM. SON AND IN ROOM.
--- NOTE | 2018-10-26 11:13 | NUR ---
UP IN ROOM TALKING TO VISITOR. DENIES NEEDING ANYTHING. DRESSING ON RIGHT SIDE OF NECK REMAINS CLEAN AND DRY. NO BLEEDING NOTED. PT AWARE THAT SHE CAN REMOVE TONIGHT. IF BLEEDING STARTS AFTER DRESSING REMOVAL, INSTRUCTED TO HOLD PRESSURE, IF IT DOES NOT STOP COME BACK TO HOSPITAL. VERBALIZED UNDERSTANDING.
[2018-10-26] MEDS ORDERED: PERCOCET 5-3251 TAB PO (11:34)
[2018-10-26] MEDS ORDERED: HYDROCHLOROTHIA25 MG PO (11:35)
[2018-10-26] MEDS ORDERED: MOBIC7.5 MG PO (11:35)
[2018-10-26] MEDS ORDERED: PHENERGAN DM SYR5 ML PO (11:36)
[2018-10-26] MEDS ORDERED: ZITHROMAX250 MG PO (11:37)
--- NOTE | 2018-10-26 12:58 | NUR ---
AMBULATED IN [place], C/O RIGHT LOWER ABD PAIN. REQUESTED PERCOCET 10 MG WITH THE SCHEDULED TORADOL. BOTH GIVEN FOR 10/10 STRETCHING/ACHING PAIN. ATE LUNCH, UP AD SUSANNE, FAMILY AND INFANT IN ROOM. WAITING ON HALL COORDINATOR FOR INFANT DC.
--- NOTE | 2018-10-26 13:50 | NUR ---
AMBULATING IN [place], PUSING CRIB TO NURSERY. NO DISTRESS NOTED. SAYS HER PAIN IS ABOUT "AN 8". CLINICAL SALES CONSULTANT IN NURSERY FOR INFANT ASSESSMENTS. ANTICIPATE DC HOME TODAY.
--- NOTE | 2018-10-26 14:00 | NUR ---
INFANT HAS BEEN DC'D. PT READY TO GO HOME. DAILY DOSE OF ZITHROMAX GIVEN AT THIS TIME. PT HAS RX FOR CONTINUED MED USE AT HOME.
--- NOTE | 2018-10-26 14:25 | NUR ---
DC'D TO CAR VIA WHEELCHAIR AFTER PROVIDING VERBAL AND WRITTEN INFORMATION ON POST OP CARE, PP DEPRESSION, S&S INFECTION, DANGER SIGNS, MEDICATION ADMINISTRATION, BOTTLEFEEDING, IMMUNIZATIONS AND FOLLOW-UP. VERBALIZED UNDERSTANDING. NO QUESTIONS ASKED. INFANT IN CARSEAT, FOB DRIVING CAR.
--- NOTE | 2018-10-26 14:29 | NUR ---
PT WAS DC'D WITH PRESCRIPTIONS AND WRITTEN INSTRUCTIONS IN HAND. ALL BELONGINGS WERE REMOVED FROM ROOM.
--- NOTE | 2018-11-21 07:47 | DS ---
PATIENT:MARISSA ROLDAN :77 MEDICAL RECORD: [id number] DISCHARGE SUMMARY ADMISSION DATE: 10/24/18 DISCHARGE DATE: 10/26/18 DATE OF ADMISSION: 10/24/2018. DATE OF DISCHARGE: 10/26/2018. ADMISSION DIAGNOSES: 1. Advanced maternal age. 2. at 39 weeks. 3. History of prior section. 4. Obesity. DISCHARGE DIAGNOSES: 1. Advanced maternal age. 2. at 39 weeks. 3. History of prior section. 4. Pelvic adhesive disease. 5. Obesity. PROCEDURE PERFORMED: 1. Lysis of adhesions. 2. Repeat . ATTENDING: Yanet Whyte MD HISTORY OF PRESENT ILLNESS: See the H&P in the chart. SUMMARY OF HOSPITALIZATION: The patient underwent procedure and did well postoperatively. At the time of discharge, she is tolerating regular diet, voiding and has flatus. DISCHARGE MEDICATIONS: Will include Percocet and ibuprofen. The patient has been given standard postoperative and precautions. She will follow up in 2 weeks at the [facility] for an incision check. TRANSINT:[id number] Voice Confirmation ID: [id number] DOCUMENT ID: [id number] YANET WHYTE MD at 0747 CC: [id number] DICTATION DATE: 11/20/18 1611 MOLD REPAIR TECHNICIAN: 11/21/18 0734 DIS IN 10/26/18 [id number] [place] [id number]
--- NOTE | 2018-11-21 07:47 | OP ---
PATIENT NAME: MARISSA ROLDAN MEDICAL RECORD: [id number] :77 LOCATION:[id number] ADMISSION DATE:10/24/18 SURGEON: YANET WHYTE MD DATE OF OPERATION: 10/24/2018 PREOPERATIVE DIAGNOSES: 1. History of prior section. 2. A 39 weeks' gestation. 3. Advanced maternal age. POSTOPERATIVE DIAGNOSES: 1. History of prior section. 2. A 39 weeks' gestation. 3. Pelvic adhesive disease. 4. Advanced maternal age. PROCEDURE PERFORMED: 1. Exploratory laparotomy. 2. Lysis of adhesions. 3. Low transverse section. SURGEON: Yanet Whyte MD. ANESTHESIOLOGIST: Dr. uMse ANESTHETIC: Spinal. FINDINGS: Uterus has dense adhesions to the abdominal wall. The bladder was also adhesed to the upper level of the uterus. What was visualized of the tubes and ovaries unremarkable. Small fibroid is present. Viable , Apgars 9 and 9, weight 7 pounds 2 ounces. SPECIMEN REMOVED: Placenta. SPECIMEN DISPOSITION: Discarded. ESTIMATED BLOOD LOSS: 900 cc. FLUIDS: 3000 cc of lactated Ringer's. URINE OUTPUT: 600 cc of clear urine. COMPLICATIONS: None. DRAINS: Burns to gravity. INDICATION: The patient is an advanced maternal age, multiparous female with a history of prior section. The patient is consented for repeat low transverse section. The risk of this procedure have been described. DESCRIPTION OF PROCEDURE: After informed consent was assured, the patient was taken to the operating room where anesthetic is eventually obtained. The patient is now prepped and draped in the usual sterile fashion. An incision was made and carried down to the underlying layer of the fascia. The fascia was opened in the midline and extended laterally. Rectus bellies were dissected OPERATIVE REPORT [id number] MARISSA RODLAN free. This dissection of the rectus bellies began anteriorly and it includes inferiorly to the fascial incisions. Rectus bellies were now and the peritoneum was entered sharply. Dense adhesions were immediately encountered. After taking them down with Metzenbaum scissors and Bovie cautery, the bladder was identified and taken down sharply. Once this had been performed, retractor was inserted. Hysterotomy was performed and the infant was delivered onto the abdomen. The cord was doubly clamped and cut and the passed to the attendant. The placenta was delivered via Crede maneuver. The uterus being adhesed it remains in situ. Dry sponge was used to clear the uterus of all clot and debris. The hysterotomy was closed in a running fashion. A second layer was applied. [id number] stitches were used to obtain hemostasis along the hysterotomy site. After hemostasis was achieved, the pelvis was irrigated, irrigant removed. The patient now has the fascia closed in a running fashion with looped PDS. After closure of the fascia, subcutaneous tissue was inspected. Bleeding vessels cauterized. Deep tissues reapproximated and subcuticular stitch applied. Sponge, lap, and needle counts correct times 2 at the close of this procedure. The patient tolerated the procedure well and went to the recovery area in stable condition. TRANSINT:[id number] Voice Confirmation ID: [id number] DOCUMENT ID: [id number] YANET WHYTE MD at [id number] CC: [id number] DICTATION DATE: 11/20/18 1609 [facility] SUPERVISOR: 11/21/18 0732 DIS IN 10/26/18 [id number] [place] [address]
== END 2018-10-26 14:25 | disposition home or self-care (01) | DRG 788 ==
LOC: D.LD 07:55
PROVIDERS: Obstetrics & Gynecology; ADMIT Obstetrics & Gynecology
PROC: 10D00Z1 Extraction of Products of Conception, Low, Open Approach (ICD-10-PCS; principal; 2018-10-24 12:00)
DX: O34.211 Maternal care for low transverse scar from previous cesarean delivery (principal); N85.8 Other specified noninflammatory disorders of uterus; Z3A.39 39 weeks gestation of pregnancy; Z37.0 Single live birth; N73.6 Female pelvic peritoneal adhesions (postinfective)

== ENCOUNTER → 2018-10-27 08:39 | Outpatient (CLI) | payer MEDICAID ==
[2018-10-24 08:25] VITALS: BMI 40.5
[~2018-10-27 08:39] MED LIST changes: +HYDROCHLOROTHIA25 MG PO; +MOBIC7.5 MG PO; +PERCOCET 5-3251 TAB PO; +PHENERGAN DM SYR5 ML PO; +ZITHROMAX250 MG PO
== END | disposition home or self-care (01) ==
LOC: D.LDO 08:39
DX: O26.899 Other specified pregnancy related conditions, unspecified trimester (principal); Z3A.00 Weeks of gestation of pregnancy not specified